=== PATIENT | male | born 1950 | race African-American/Black ===

== ENCOUNTER 2019-10-21 16:41 | Inpatient (IN) | payer MEDICARE ==
[~2019-10-21] VITALS: Ht 172.7 cm; Wt 49.4 kg
[2019-10-21] MEDS ORDERED: BREO ELLIPTA 11 EACH INH (16:45)
[2019-10-21] MEDS ORDERED: JEVITY 1.5 CAL237 ML GT (16:48)
[2019-10-21] MEDS ORDERED: ATIVAN0.5 MG GT (16:50)
[2019-10-21] MEDS ORDERED: RISPERDAL0.5 MG GT (16:51)
[2019-10-21] MEDS ORDERED: LOPRESSOR25 MG GT (16:51)
[2019-10-21] MEDS ORDERED: VISTARIL50 MG GT (16:52)
[2019-10-21] MEDS ORDERED: NATURE'S BLEND F1 MG GT (16:55)
[2019-10-21] MEDS ORDERED: REMERON15 M2 GT (16:57)
[2019-10-21] MEDS ORDERED: DAILY VALUE1 EACH GT (16:59)
[2019-10-21] MEDS ORDERED: PROTONIX20 MG GT (17:00)
[2019-10-21] MEDS ORDERED: QUETIAPINE FUMA25 M2 GT (17:01)
[2019-10-21] MEDS ORDERED: VITAMIN B150 MG GT (17:01)
[2019-10-21] MEDS ORDERED: ALBUTEROL2.5 MG/0.5 INH (17:03)
[2019-10-22 02:50] VITALS: BP 130/80
[2019-10-22 06:25] LABS: BASO % 0.6 % (0.0-1.0); EOS # 0.2 10*3/uL (0.0-0.4); EOS % 2.3 % (1.0-4.0); HEMATOCRIT 36.5 % (42.0-52.0); HEMOGLOBIN 10.9 g/dl (14.0-18.0); LYMPH # 1.9 10*3/uL (1.3-4.4); LYMPH % 27.1 % (27.0-41.0); MEAN CELL VOLUME 96.3 fl (80.0-94.0); MEAN CORPUSCULAR HGB 28.8 pg (27.0-31.0); MEAN CORPUSCULAR HGB CONC 29.9 g/dl (33.0-37.0); MEAN PLATELET VOLUME 8.9 fl (9.6-12.3); MONO # 0.6 10*3/uL (0.1-1.0); MONO % 8.2 % (3.0-9.0); NEUT # 4.2 10*3/uL (2.3-7.9); NEUT % 61.5 % (47.0-73.0); PLATELET COUNT AUTOMATED 408 10*3/uL (130-400); RED BLOOD COUNT 3.79 10*6/uL (4.50-5.90); RED CELL DISTRI WIDTH 13.2 % (0-14.5); WHITE BLOOD COUNT 6.8 10*3/uL (4.8-10.8)
[2019-10-22 06:38] LABS: ALKALINE PHOSPHATASE 86 U/L (45-117); BUN 21 mg/dl (7-24); CHLORIDE 109 mmol/L (98-107); CHOLESTEROL 148 mg/dL (<200); CREATININE 0.77 mg/dL (0.70-1.30); HDL CHOLESTEROL 41 mg/dl (40-60); LDL CHOLESTEROL 88 mg/dL (9-159); POTASSIUM 3.8 mmol/L (3.5-5.1); SGOT/AST 26 IU/L (3-35); SGPT/ALT 43 U/L (12-78); SODIUM 143 mmol/L (136-145); TOTAL PROTEIN 7.3 gm/dL (6.4-8.2); TRIGLYCERIDES 96 mg/dl (<150); VLDL CHOLESTEROL 19 mg/dL (6-40)
[2019-10-22 08:16] VITALS: BP 116/68
[2019-10-22 08:23] LABS: VITAMIN D, 25-HYDROXY 11.2 ng/mL (30-100)
[2019-10-22 20:00] VITALS: BP 102/55
[2019-10-23 07:38] VITALS: BP 114/61
[2019-10-23 20:00] VITALS: BP 110/68
[2019-10-24 08:00] VITALS: BP 114/61
[2019-10-24 20:00] VITALS: BP 106/68
[2019-10-25 07:45] VITALS: BP 102/64
[2019-10-25 19:57] VITALS: BP 103/65
[2019-10-26 07:50] VITALS: BP 90/62
[2019-10-26 20:00] VITALS: BP 101/64
[2019-10-27 07:43] VITALS: BP 78/46
[2019-10-27 07:49] VITALS: BP 106/80
[2019-10-27 15:44] LABS: BASO % 0.2 % (0.0-1.0); EOS % 0.2 % (1.0-4.0); HEMATOCRIT 34.9 % (42.0-52.0); HEMOGLOBIN 10.7 g/dl (14.0-18.0); LYMPH # 1.3 10*3/uL (1.3-4.4); LYMPH % 15.9 % (27.0-41.0); MEAN CELL VOLUME 96.1 fl (80.0-94.0); MEAN CORPUSCULAR HGB 29.5 pg (27.0-31.0); MEAN CORPUSCULAR HGB CONC 30.7 g/dl (33.0-37.0); MEAN PLATELET VOLUME 10.1 fl (9.6-12.3); MONO # 0.9 10*3/uL (0.1-1.0); NEUT # 5.9 10*3/uL (2.3-7.9); NEUT % 72.3 % (47.0-73.0); PLATELET COUNT AUTOMATED 152 10*3/uL (130-400); RED BLOOD COUNT 3.63 10*6/uL (4.50-5.90); RED CELL DISTRI WIDTH 13.2 % (0-14.5); WHITE BLOOD COUNT 8.1 10*3/uL (4.8-10.8)
[2019-10-27 16:01] LABS: ALBUMIN 2.3 gm/dl (3.1-4.5); ALKALINE PHOSPHATASE 69 U/L (45-117); BUN 13 mg/dl (7-24); CHLORIDE 102 mmol/L (98-107); CREATININE 0.76 mg/dL (0.70-1.30); POTASSIUM 3.8 mmol/L (3.5-5.1); SGOT/AST 24 IU/L (3-35); SGPT/ALT 26 U/L (12-78); SODIUM 139 mmol/L (136-145); TOTAL PROTEIN 6.3 gm/dL (6.4-8.2)
[2019-10-27 19:59] VITALS: BP 111/82
[2019-10-28 08:51] VITALS: BP 107/64
[2019-10-28 20:00] VITALS: BP 116/80
[2019-10-29 08:00] VITALS: BP 110/55
[2019-10-29 19:28] VITALS: BP 112/60
[2019-10-30 08:00] VITALS: BP 110/64
[2019-10-30 19:40] VITALS: BP 112/68
[2019-10-31 08:00] VITALS: BP 115/58
[2019-10-31] MEDS ORDERED: DIVALPROEX SOD125 M1 PO (08:40)
[2019-10-31] MEDS ORDERED: EXELON13.3 MG/21 T (08:40)
[2019-10-31] MEDS ORDERED: MEMANTINE HCL10 MG PO (08:40)
[2019-10-31] MEDS ORDERED: LEVAQUIN750 M1 PO (08:47)
== END 2019-10-31 13:59 | disposition other institution (70) | DRG 883 ==
LOC: 3N 16:41
PROVIDERS: Internal Medicine; ADMIT Psychiatry & Neurology Psychiatry
DX: F63.81 Intermittent explosive disorder (principal); F33.1 Major depressive disorder, recurrent, moderate; S90.821A Blister (nonthermal), right foot, initial encounter; F10.97 Alcohol use, unspecified with alcohol-induced persisting dementia; Y90.9 Presence of alcohol in blood, level not specified; Z91.013 Allergy to seafood; J45.909 Unspecified asthma, uncomplicated; I10 Essential (primary) hypertension; K21.9 Gastro-esophageal reflux disease without esophagitis; E53.8 Deficiency of other specified B group vitamins; F41.9 Anxiety disorder, unspecified; X58.XXXA Exposure to other specified factors, initial encounter; Y93.89 Activity, other specified; Z79.899 Other long term (current) drug therapy; Z93.1 Gastrostomy status